=== PATIENT | male | born 1955 | race Caucasian/White ===

== ENCOUNTER 2022-09-08 08:34 | Inpatient (IN) | payer MEDICARE, MEDICAID, SELFPAY ==
--- NOTE | 2022-09-08 | EEG_ITS ---
This is a 16-channel EEG with an EKG lead. The patient is reported awake and restless during the tracing. Background EEG rhythm is 6 to 8 hertz 5 to 50 microvolt posteriorly and lower amplitude fast anteriorly. Occasional frontal delta form discharges were noted. Occasional right central sharply contoured theta range discharges were noted. No definite spike was noted. Cardiac lead did not reveal any significant abnormality. IMPRESSION: Mildly abnormal EEG suggestive of right frontocentral . M MD TORO Armstrong/FARRUKH / [id number]
--- NOTE | ~2022-09-08 | CT_ITS ---
EXAMINATION: CT HEAD WITHOUT CONTRAST CLINICAL INFORMATION: Acute mental status change COMPARISON: None TECHNIQUE: Contiguous axial imaging was performed from the skull base to vertex without intravenous administration of contrast. This CT examination was performed using dose optimization techniques as appropriate, variously including the following: *Automated exposure control *Adjustment of mA and/or kV according to patient size (this includes techniques or standardized protocols for targeted exams where dose is matched to indication/reason for exam; i.e. extremities or head) *Use of iterative reconstruction technique DLP: 1238 mGy-cm FINDINGS: There is prominence to the sulci and ventricles. There is volume loss in the region of the right temporal lobe and sylvian fissure. No evidence for intra or extra-axial fluid collection or hemorrhage, mass or mass effect. Tiny old thalamic lacunes incidentally are seen. There is mucoperiosteal thickening in the right maxillary sinus. The calvarium is intact. CT/CT head/brain wo IV con IMPRESSION: Chronic changes observed. No intracranial acute pathology.
--- NOTE | ~2022-09-08 | CT_ITS ---
EXAMINATION: CT ABDOMEN AND PELVIS WITHOUT CONTRAST CLINICAL INFORMATION: Stomach pain. COMPARISON: None TECHNIQUE: Multidetector volumetric imaging was performed from the superior aspect of the liver through the pubic symphysis. Sagittal and coronal reformatted images were obtained on the technologist's workstation. This CT examination was performed using dose optimization techniques as appropriate, variously including the following: *Automated exposure control *Adjustment of mA and/or kV according to patient size (this includes techniques or standardized protocols for targeted exams where dose is matched to indication/reason for exam; i.e. extremities or head) *Use of iterative reconstruction technique DLP: 766 mGy-cm FINDINGS: LUNG BASES: There is mild scar/subsegmental atelectasis at the lateral left base. There are coronary artery atherosclerotic calcifications. LIVER, GALLBLADDER, AND BILIARY TREE: The liver is normal in size, shape, and attenuation. No focal hepatic lesion or biliary ductal dilatation is present. There is cholelithiasis, without gallbladder wall thickening or obvious pericholecystic inflammatory change. PANCREAS: Unremarkable. SPLEEN: Unremarkable. ADRENAL GLANDS: Unremarkable. KIDNEYS AND URETERS: The kidneys are normal in size, shape, and attenuation. No hydronephrosis, hydroureter, or calculi seen. No perinephric stranding. BLADDER: Unremarkable. GASTROINTESTINAL TRACT: There is moderate diverticulosis, without acute diverticulitis. No bowel obstruction, free intraperitoneal air or abscess is seen. There is no focal bowel wall thickening. The vermiform appendix appears normal. ABDOMINAL WALL: There are small fat-containing umbilical and bilateral inguinal hernias. LYMPH NODES: Normal. VASCULAR: Unremarkable. PELVIC VISCERA: The prostate and seminal vesicles are unremarkable. OSSEOUS STRUCTURES: There is multi-level thoracolumbar degenerative disc disease, spondylosis and Schmorl's node formation. Particular note is made of a very large Schmorl's node of the L5 upper endplate. No acute or aggressive osseous abnormality is seen. CT/CT abdomen pelvis wo IV con IMPRESSION: 1. There is cholelithiasis, without cholecystitis or choledocholithiasis seen. 2. There is moderate diverticulosis, without acute diverticulitis. 3. No urinary mass, calculus or obstruction is seen. 4. There are small fat-containing umbilical and bilateral hernias. 5. There are degenerative changes of the thoracolumbar spine. No aggressive osseous lesion is seen. 6. There are coronary artery atherosclerotic calcifications. Fleischner guidelines were followed.
--- NOTE | 2022-09-08 08:39 | ECG_ITS ---
Test Reason : stroke Blood Pressure : / mmHG Vent. Rate : 076 BPM Atrial Rate : 000 BPM P-R Int : 000 ms QRS Dur : 094 ms QT Int : 428 ms P-R-T Axes : 000 035 240 degrees QTc Int : [address] depression inferior and shanice-lateral leads Prolonged QT Abnormal ECG No previous ECGs available Referred By: Deny Robb Electronically Signed By:BRODY MORALES
--- NOTE | 2022-09-08 08:48 | ED.GENADULT ---
HPI - General Adult General Chief complaint: Altered Mental Status Stated complaint: STROKE ALERT,LKWT 9PM,LETHARGY,ON COUMADIN PER EMS Time Seen by Provider: 09/08/22 08:39 Source: EMS Mode of arrival: EMS Limitations: no limitations History of Present Illness HPI narrative: A 66-year-old male with history of cardiac related issues on anticoagulation presents with altered mental status. His last seen normal at 9:00 a.m. last night. He has no known history of seizure. There is no evidence of trauma. Found altered and unresponsive in his bed this morning. Patient is unable to provide additional history. History is obtained by EMS. They report his blood pressure was slightly hypertensive his blood sugar was above 100, heart rate varied from 80-100 in atrial fibrillation but no acute ST elevations or depressions. Upon arrival, patient is alert but verbally unresponsive. He has blood around his mouth and unable to follow commands. Related Data Allergies Allergy/AdvReac Type Severity Reaction Status Date / Time Unable to Assess Allergy Verified 09/08/22 08:39 Review of Systems Review of Systems: Yes Unobtainable due to mental status [facility] Past Medical History Source: unable to obtain Social History Social History Alcohol intake: unknown Advance Directives: Yes Advance Directives on File: No Physical Exam ED Vital Signs: Vital Signs - 24 hr 09/08/22 08:56 09/08/22 11:09 09/08/22 13:32 Temperature 97.7 F 97.8 F Pulse Rate 84 60 76 Respiratory Rate 18 14 11 L Blood Pressure 179/76 H 104/47 L 113/49 L Pulse Oximetry 98 95 99 Oxygen Delivery Method Room Air Room Air Room Air BMI result Body Mass Index 30.4 GEN: Well developed, no acute distress, alert HEENT: Normocephalic, atraumatic, normal external ears, nose appears normal, blood around mouth, unable to examine oral cavity Eyes: Normal to appearance Neck: Supple, no lymphadenopathy Respiratory: Talks in complete sentences, no respiratory distress, clear to auscultation bilaterally Cardiovascular: Irregular cardiac rhythm, 2/6 systolic murmur, mechanical valve sounds Abdomen: Soft, nontender, nondistended, no guarding, no rebound Back: No CVA tenderness Extremities: No clubbing cyanosis or edema Neurologic: No focal neurologic deficits, unable to perform a complete neurologic exam due to patient's condition Skin: No rash Psych: Altered mental status Course Course Course Narrative: 66-year-old male with history of atrial fibrillation, mechanical valve on anticoagulation presents with altered mental status. Etiology is unclear. He was last seen normal at 9:00 a.m. last night. History was obtained from EMS. On my examination there were no obvious focal neurologic deficits. He had blood around the exterior aspect of his mouth unable to visualize the oral cavity. Broad differential diagnosis currently being considered. Patient had CT scan, EKG, laboratory analysis, urinalysis. I suspect patient will likely require hospitalization to his current condition. Reevaluation(s) Reevaluation #1: Patient had no response to Narcan. Will admit patient for altered mental status. Time: 13:39 Medications Administered Generic Name Dose Route Start Last Admin Trade Name Freq PRN Reason Stop Dose Admin Naloxone HCl 5 mg/ Dextrose 100 mls @ 10 mls/hr 09/08/22 11:45 09/08/22 12:51 IV 0.5 mg/hr .Q10H GEOVANNA 10 mls/hr Administration 0.5 MG/HR Discontinued Medications Generic Name Dose Route Start Last Admin Trade Name Freq PRN Reason Stop Dose Admin Sodium Chloride 1,000 mls @ 999 mls/hr 09/08/22 09:45 09/08/22 11:04 Ns IV 09/08/22 10:45 Infused .Q1H1M GEOVANNA Infusion Medical Decision Making Medical Decision Making [facility] Narrative: 66-year-old male with a history of atrial fibrillation on anticoagulation presents with altered mental status. There are no focal deficits but patient is unresponsive and unable to provide Differential Diagnosis Differential Diagnoses: The differential diagnosis associated with the presentation includes (Head injury, intracranial bleeding, UTI, intoxication, altered mental status, encephalopathy, doubt meningitis) Admission/Observation Consideration of admission/observation: Escalation of care including admission/observation considered Consult Healthcare Provider Management of the patient was discussed with: Hospitalist Lab Data [facility] Lab Attestation statement: I reviewed the patient's lab results. 09/08/22 08:50 09/08/22 08:50 Labs: Lab Results 09/08/22 09/08/22 09/08/22 Range/Units 08:42 08:44 08:50 WBC 9.2 (4.8-10.8) X10*3/uL RBC 5.09 (4.60-5.80) X10*6/uL Hgb 14.7 (14.0-18.0) g/dl Hct 44.0 (42.0-52.0) % MCV 86.4 (80.0-98.0) fL MCH 28.9 (27.0-33.0) pg MCHC 33.4 (31.0-36.0) g/dl RDW 13.0 (11.0-16.0) % Plt Count 159 L (160-400) X10*3/uL MPV 10.9 (9.4-12.4) fL Immature Gran % (Auto) 1.1 H (0.0-0.4) % Neut % (Auto) 79.3 H (45-73) % Lymph % (Auto) 12.9 L (20-40) % [place] % (Auto) 5.7 (2-11) % Eos % (Auto) 0.7 (0-4) % Baso % (Auto) 0.3 (0-2) % Lymph # (Auto) 1.2 (1.2-4.9) X10*3/uL [place] # (Auto) 0.5 (0.1-1.2) X10*3/uL Eos # (Auto) 0.1 (0.0-0.4) X10*3/uL Baso # (Auto) 0.0 (0.0-0.2) X10*3/uL Abs Immat Gran (auto) 0.10 H (0.00-0.03) X10*3/uL Absolute Neuts (auto) 7.3 (2.0-8.3) x10*3/uL Absolute Nucleated RBC 0.000 (0.0-0.012) X10*3/uL Nucleated RBC % (auto) 0.0 (0.0-0.2) /100WBC PT (10.0-13.1) SEC Whole Blood PT 34.4 H (11.1-13.5) sec INR (0.9-1.1) Whole Blood INR 2.9 H (0.9-1.1) Sodium (135-145) mmol/L Potassium (3.3-5.1) mmol/L Chloride (96-108) mmol/L Carbon Dioxide (22-29) mmol/L Anion Gap (12-20) BUN (9-16) mg/dL Creatinine (0.5-1.4) mg/dL Estim Creat Clear Calc Estimated GFR POC Glucose 164 H (60-115) mg/dL Random Glucose (60-115) mg/dL Lactic Acid (0.5-2.0) mmol/L Lactic Acid F/U @ 2Hr (0.5-2.0) mmol/L Calcium (8.4-10.2) mg/dL Total Bilirubin (0.0-1.0) mg/dL Direct Bilirubin (0.0-0.5) mg/dL AST (5-37) U/L ALT (0-40) U/L Alkaline Phosphatase (39-117) U/L Ammonia (13-55) umol/L Total Protein (6.5-8.0) g/dL Albumin (3.5-5.0) g/dL Urine Color Urine Appearance Urine pH (5.0-9.0) Ur Specific [place] (1.005-1.025) Urine Protein (Neg-Trace) mg/dL Urine Glucose (UA) (Negative) mg/dL Urine Ketones (Negative) mg/dL Urine Blood (Negative) Urine Nitrite (Negative) Ur Leukocyte Esterase (Negative) Urine RBC (0-2) /HPF Urine WBC (0-5) /HPF Ur Squamous Epith Cells (0-2) /HPF Urine Bacteria (None Seen) Hyaline Casts (0-2) /LPF Urine Opiates Screen (Not Detect) Urine Fentanyl Screen (Not Detect) Ur Barbiturates Screen (Not Detect) Ur Phencyclidine Scrn (Not Detect) Ur Amphetamines Screen (Not Detect) U Benzodiazepines Scrn (Not Detect) Urine Cocaine Screen (Not Detect) U Marijuana (THC) Screen (Not Detect) Ethyl Alcohol mg/dL COVID-19 ([facility]) (Negative) COVID-19 Clin Com 09/08/22 09/08/22 09/08/22 Range/Units 08:50 08:50 08:50 WBC (4.8-10.8) X10*3/uL RBC (4.60-5.80) X10*6/uL Hgb (14.0-18.0) g/dl Hct (42.0-52.0) % MCV (80.0-98.0) fL MCH (27.0-33.0) pg MCHC (31.0-36.0) g/dl RDW (11.0-16.0) % Plt Count (160-400) X10*3/uL MPV (9.4-12.4) fL Immature Gran % (Auto) (0.0-0.4) % Neut % (Auto) (45-73) % Lymph % (Auto) (20-40) % [place] % (Auto) (2-11) % Eos % (Auto) (0-4) % Baso % (Auto) (0-2) % Lymph # (Auto) (1.2-4.9) X10*3/uL [place] # (Auto) (0.1-1.2) X10*3/uL Eos # (Auto) (0.0-0.4) X10*3/uL Baso # (Auto) (0.0-0.2) X10*3/uL Abs Immat Gran (auto) (0.00-0.03) X10*3/uL Absolute Neuts (auto) (2.0-8.3) x10*3/uL Absolute Nucleated RBC (0.0-0.012) X10*3/uL Nucleated RBC % (auto) (0.0-0.2) /100WBC PT 33.5 H (10.0-13.1) SEC Whole Blood PT (11.1-13.5) sec INR 2.8 H (0.9-1.1) Whole Blood INR (0.9-1.1) Sodium 142 (135-145) mmol/L Potassium 4.3 (3.3-5.1) mmol/L Chloride 109 H (96-108) mmol/L Carbon Dioxide 20 L (22-29) mmol/L Anion Gap 17 (12-20) BUN 21 H (9-16) mg/dL Creatinine 0.96 (0.5-1.4) mg/dL Estim Creat Clear Calc 83.9 Estimated GFR > 60 POC Glucose (60-115) mg/dL Random Glucose 159 H (60-115) mg/dL Lactic Acid (0.5-2.0) mmol/L Lactic Acid F/U @ 2Hr (0.5-2.0) mmol/L Calcium 9.2 (8.4-10.2) mg/dL Total Bilirubin 0.7 (0.0-1.0) mg/dL Direct Bilirubin 0.2 (0.0-0.5) mg/dL AST 24 (5-37) U/L ALT 23 (0-40) U/L Alkaline Phosphatase 61 (39-117) U/L Ammonia 25 (13-55) umol/L Total Protein 6.7 (6.5-8.0) g/dL Albumin 4.0 (3.5-5.0) g/dL Urine Color Urine Appearance Urine pH (5.0-9.0) Ur Specific [place] (1.005-1.025) Urine Protein (Neg-Trace) mg/dL Urine Glucose (UA) (Negative) mg/dL Urine Ketones (Negative) mg/dL Urine Blood (Negative) Urine Nitrite (Negative) Ur Leukocyte Esterase (Negative) Urine RBC (0-2) /HPF Urine WBC (0-5) /HPF Ur Squamous Epith Cells (0-2) /HPF Urine Bacteria (None Seen) Hyaline Casts (0-2) /LPF Urine Opiates Screen (Not Detect) Urine Fentanyl Screen (Not Detect) Ur Barbiturates Screen (Not Detect) Ur Phencyclidine Scrn (Not Detect) Ur Amphetamines Screen (Not Detect) U Benzodiazepines Scrn (Not Detect) Urine Cocaine Screen (Not Detect) U Marijuana (THC) Screen (Not Detect) Ethyl Alcohol < 10 mg/dL COVID-19 ([facility]) (Negative) COVID-19 Clin Com 09/08/22 09/08/22 09/08/22 Range/Units 09:22 09:22 09:22 WBC (4.8-10.8) X10*3/uL RBC (4.60-5.80) X10*6/uL Hgb (14.0-18.0) g/dl Hct (42.0-52.0) % MCV (80.0-98.0) fL MCH (27.0-33.0) pg MCHC (31.0-36.0) g/dl RDW (11.0-16.0) % Plt Count (160-400) X10*3/uL MPV (9.4-12.4) fL Immature Gran % (Auto) (0.0-0.4) % Neut % (Auto) (45-73) % Lymph % (Auto) (20-40) % [place] % (Auto) (2-11) % Eos % (Auto) (0-4) % Baso % (Auto) (0-2) % Lymph # (Auto) (1.2-4.9) X10*3/uL [place] # (Auto) (0.1-1.2) X10*3/uL Eos # (Auto) (0.0-0.4) X10*3/uL Baso # (Auto) (0.0-0.2) X10*3/uL Abs Immat Gran (auto) (0.00-0.03) X10*3/uL Absolute Neuts (auto) (2.0-8.3) x10*3/uL Absolute Nucleated RBC (0.0-0.012) X10*3/uL Nucleated RBC % (auto) (0.0-0.2) /100WBC PT (10.0-13.1) SEC Whole Blood PT (11.1-13.5) sec INR (0.9-1.1) Whole Blood INR (0.9-1.1) Sodium (135-145) mmol/L Potassium (3.3-5.1) mmol/L Chloride (96-108) mmol/L Carbon Dioxide (22-29) mmol/L Anion Gap (12-20) BUN (9-16) mg/dL Creatinine (0.5-1.4) mg/dL Estim Creat Clear Calc Estimated GFR POC Glucose (60-115) mg/dL Random Glucose (60-115) mg/dL Lactic Acid 3.1 H* (0.5-2.0) mmol/L Lactic Acid F/U @ 2Hr (0.5-2.0) mmol/L Calcium (8.4-10.2) mg/dL Total Bilirubin (0.0-1.0) mg/dL Direct Bilirubin (0.0-0.5) mg/dL AST (5-37) U/L ALT (0-40) U/L Alkaline Phosphatase (39-117) U/L Ammonia (13-55) umol/L Total Protein (6.5-8.0) g/dL Albumin (3.5-5.0) g/dL Urine Color Yellow Urine Appearance Clear Urine pH 5.5 (5.0-9.0) Ur Specific [place] 1.015 (1.005-1.025) Urine Protein Negative (Neg-Trace) mg/dL Urine Glucose (UA) Negative (Negative) mg/dL Urine Ketones Negative (Negative) mg/dL Urine Blood Trace H (Negative) Urine Nitrite Negative (Negative) Ur Leukocyte Esterase Negative (Negative) Urine RBC 0-2 (0-2) /HPF Urine WBC 0-5 (0-5) /HPF Ur Squamous Epith Cells 0-2 (0-2) /HPF Urine Bacteria None Seen (None Seen) Hyaline Casts 0-2 (0-2) /LPF Urine Opiates Screen (Not Detect) Urine Fentanyl Screen (Not Detect) Ur Barbiturates Screen (Not Detect) Ur Phencyclidine Scrn (Not Detect) Ur Amphetamines Screen (Not Detect) U Benzodiazepines Scrn (Not Detect) Urine Cocaine Screen (Not Detect) U Marijuana (THC) Screen (Not Detect) Ethyl Alcohol mg/dL COVID-19 ([facility]BER) Negative (Negative) COVID-19 Clin Com See Note 09/08/22 09/08/22 09/08/22 Range/Units 09:22 11:38 13:18 WBC (4.8-10.8) X10*3/uL RBC (4.60-5.80) X10*6/uL Hgb (14.0-18.0) g/dl Hct (42.0-52.0) % MCV (80.0-98.0) fL MCH (27.0-33.0) pg MCHC (31.0-36.0) g/dl RDW (11.0-16.0) % Plt Count (160-400) X10*3/uL MPV (9.4-12.4) fL Immature Gran % (Auto) (0.0-0.4) % Neut % (Auto) (45-73) % Lymph % (Auto) (20-40) % [place] % (Auto) (2-11) % Eos % (Auto) (0-4) % Baso % (Auto) (0-2) % Lymph # (Auto) (1.2-4.9) X10*3/uL [place] # (Auto) (0.1-1.2) X10*3/uL Eos # (Auto) (0.0-0.4) X10*3/uL Baso # (Auto) (0.0-0.2) X10*3/uL Abs Immat Gran (auto) (0.00-0.03) X10*3/uL Absolute Neuts (auto) (2.0-8.3) x10*3/uL Absolute Nucleated RBC (0.0-0.012) X10*3/uL Nucleated RBC % (auto) (0.0-0.2) /100WBC PT (10.0-13.1) SEC Whole Blood PT (11.1-13.5) sec INR (0.9-1.1) Whole Blood INR (0.9-1.1) Sodium (135-145) mmol/L Potassium (3.3-5.1) mmol/L Chloride (96-108) mmol/L Carbon Dioxide (22-29) mmol/L Anion Gap (12-20) BUN (9-16) mg/dL Creatinine (0.5-1.4) mg/dL Estim Creat Clear Calc Estimated GFR POC Glucose (60-115) mg/dL Random Glucose (60-115) mg/dL Lactic Acid (0.5-2.0) mmol/L Lactic Acid F/U @ 2Hr 0.9 (0.5-2.0) mmol/L Calcium (8.4-10.2) mg/dL Total Bilirubin (0.0-1.0) mg/dL Direct Bilirubin (0.0-0.5) mg/dL AST (5-37) U/L ALT (0-40) U/L Alkaline Phosphatase (39-117) U/L Ammonia (13-55) umol/L Total Protein (6.5-8.0) g/dL Albumin (3.5-5.0) g/dL Urine Color Urine Appearance Urine pH (5.0-9.0) Ur Specific [place] (1.005-1.025) Urine Protein (Neg-Trace) mg/dL Urine Glucose (UA) (Negative) mg/dL Urine Ketones (Negative) mg/dL Urine Blood (Negative) Urine Nitrite (Negative) Ur Leukocyte Esterase (Negative) Urine RBC (0-2) /HPF Urine WBC (0-5) /HPF Ur Squamous Epith Cells (0-2) /HPF Urine Bacteria (None Seen) Hyaline Casts (0-2) /LPF Urine Opiates Screen Not Detected (Not Detect) Urine Fentanyl Screen POSITIVE H (Not Detect) Ur Barbiturates Screen Not Detected (Not Detect) Ur Phencyclidine Scrn Not Detected (Not Detect) Ur Amphetamines Screen Not Detected (Not Detect) U Benzodiazepines Scrn Not Detected (Not Detect) Urine Cocaine Screen Not Detected (Not Detect) U Marijuana (THC) Screen POSITIVE H (Not Detect) Ethyl Alcohol mg/dL COVID-19 ([facility]) Negative (Negative) COVID-19 Clin Com See Note 09/08/22 Range/Units 13:28 WBC (4.8-10.8) X10*3/uL RBC (4.60-5.80) X10*6/uL Hgb (14.0-18.0) g/dl Hct (42.0-52.0) % MCV (80.0-98.0) fL MCH (27.0-33.0) pg MCHC (31.0-36.0) g/dl RDW (11.0-16.0) % Plt Count (160-400) X10*3/uL MPV (9.4-12.4) fL Immature Gran % (Auto) (0.0-0.4) % Neut % (Auto) (45-73) % Lymph % (Auto) (20-40) % [place] % (Auto) (2-11) % Eos % (Auto) (0-4) % Baso % (Auto) (0-2) % Lymph # (Auto) (1.2-4.9) X10*3/uL [place] # (Auto) (0.1-1.2) X10*3/uL Eos # (Auto) (0.0-0.4) X10*3/uL Baso # (Auto) (0.0-0.2) X10*3/uL Abs Immat Gran (auto) (0.00-0.03) X10*3/uL Absolute Neuts (auto) (2.0-8.3) x10*3/uL Absolute Nucleated RBC (0.0-0.012) X10*3/uL Nucleated RBC % (auto) (0.0-0.2) /100WBC PT (10.0-13.1) SEC Whole Blood PT (11.1-13.5) sec INR (0.9-1.1) Whole Blood INR (0.9-1.1) Sodium (135-145) mmol/L Potassium (3.3-5.1) mmol/L Chloride (96-108) mmol/L Carbon Dioxide (22-29) mmol/L Anion Gap (12-20) BUN (9-16) mg/dL Creatinine (0.5-1.4) mg/dL Estim Creat Clear Calc Estimated GFR POC Glucose 115 (60-115) mg/dL Random Glucose (60-115) mg/dL Lactic Acid (0.5-2.0) mmol/L Lactic Acid F/U @ 2Hr (0.5-2.0) mmol/L Calcium (8.4-10.2) mg/dL Total Bilirubin (0.0-1.0) mg/dL Direct Bilirubin (0.0-0.5) mg/dL AST (5-37) U/L ALT (0-40) U/L Alkaline Phosphatase (39-117) U/L Ammonia (13-55) umol/L Total Protein (6.5-8.0) g/dL Albumin (3.5-5.0) g/dL Urine Color Urine Appearance Urine pH (5.0-9.0) Ur Specific [place] (1.005-1.025) Urine Protein (Neg-Trace) mg/dL Urine Glucose (UA) (Negative) mg/dL Urine Ketones (Negative) mg/dL Urine Blood (Negative) Urine Nitrite (Negative) Ur Leukocyte Esterase (Negative) Urine RBC (0-2) /HPF Urine WBC (0-5) /HPF Ur Squamous Epith Cells (0-2) /HPF Urine Bacteria (None Seen) Hyaline Casts (0-2) /LPF Urine Opiates Screen (Not Detect) Urine Fentanyl Screen (Not Detect) Ur Barbiturates Screen (Not Detect) Ur Phencyclidine Scrn (Not Detect) Ur Amphetamines Screen (Not Detect) U Benzodiazepines Scrn (Not Detect) Urine Cocaine Screen (Not Detect) U Marijuana (THC) Screen (Not Detect) Ethyl Alcohol mg/dL COVID-19 ([facility]) (Negative) COVID-19 Clin Com Independent Interpretation I performed an independent interpretation of an: EKG (Atrial fibrillation heart rate 76, evidence of LVH with strain pattern, slightly prolonged QT), Plain X-Ray and CT Scan (No acute intracranial process) Radiology Impression Discussion of test interpretation with radiology: I have reviewed the radiologist's reading. (IMPRESSION: Chronic changes observed. No intracranial acute pathology. Dictated By:Alvaro Luke MDSigned By:<Electronically signed by Alvaro Luke MD in [place]>09/08/22 1022 DD/ [id number]/TT: [employer]:) Independent Historian Clinical information obtained from an independent historian. History obtained from or confirmed by: EMS External Record Review No records available Tests considered The following testing was considered but not selected: MRI, EEG Discharge Plan Discharge Clinical Impression: Altered mental status Patient Disposition: Admitted As Inpatient
[2022-09-08 08:56] VITALS: BP 160/80; BP 179/76; PULSE 84; PULSE 85; RESP 18; TEMP 36.5; O2SAT 98; BMI 30.4
[2022-09-08 08:57] LABS: MANUAL DIFF FLAG NO
[2022-09-08 08:58] LABS: Basophils Percent Auto 0.3 % (0-2); Eosinophils Absolute Auto 0.1 X10*3/uL (0.0-0.4); Eosinophils Percent Auto 0.7 % (0-4); Hemoglobin 14.7 g/dl (14.0-18.0); Imm Gran Pct Auto 1.1 % (0.0-0.4); Lymphocytes Absolute Auto 1.2 X10*3/uL (1.2-4.9); Lymphocytes Percent Auto 12.9 % (20-40); Mean Corpuscular HGB Conc 33.4 g/dl (31.0-36.0); Mean Corpuscular Hemoglobin 28.9 pg (27.0-33.0); Mean Corpuscular Volume 86.4 fL (80.0-98.0); Mean Platelet Volume 10.9 fL (9.4-12.4); Monocytes Absolute Auto 0.5 X10*3/uL (0.1-1.2); Monocytes Percent Auto 5.7 % (2-11); Neutrophils Absolute Auto 7.3 x10*3/uL (2.0-8.3); Neutrophils Percent Auto 79.3 % (45-73); Platelet Count 159 X10*3/uL (160-400); Red Blood Count 5.09 X10*6/uL (4.60-5.80); White Blood Count 9.2 X10*3/uL (4.8-10.8)
[2022-09-08 08:59] LABS: Prothrombin Time Whole Bld POC 34.4 sec (11.1-13.5); ~PT, ~INR - Anti Coag Clinic 2.9 (0.9-1.1)
[2022-09-08 09:00] LABS: Glucose, Whole Blood 164 mg/dL (60-115)
[2022-09-08 09:03] LABS: INTERNATIONAL NORM RATIO 2.8 (0.9-1.1); Prothrombin Time 33.5 SEC (10.0-13.1)
[2022-09-08 09:08] LABS: Ammonia 25 umol/L (13-55)
[2022-09-08 09:19] LABS: Alanine Aminotransferase 23 U/L (0-40); Alkaline Phosphatase 61 U/L (39-117); Anion Gap 17 (12-20); Aspartate Amino Transferase 24 U/L (5-37); Bilirubin Direct 0.2 mg/dL (0.0-0.5); Bilirubin Total 0.7 mg/dL (0.0-1.0); Blood Urea Nitrogen 21 mg/dL (9-16); Calcium 9.2 mg/dL (8.4-10.2); Carbon Dioxide 20 mmol/L (22-29); Chloride 109 mmol/L (96-108); Creatinine Clr Calc Pharmacy 83.9; Estimated Glomerular Filt Rate > 60; Ethanol < 10 mg/dL; Glucose Random 159 mg/dL (60-115); Potassium 4.3 mmol/L (3.3-5.1); Sodium 142 mmol/L (135-145); Total Protein 6.7 g/dL (6.5-8.0)
[2022-09-08 09:33] LABS: Appearance Urine Clear; Color Urine Yellow; Glucose Urine UA Negative (Negative); Leukocyte Esterase Urine Negative (Negative); Nitrite Urine Negative (Negative); PH 5.5 (5.0-9.0); Specific Gravity - Urine 1.015 (1.005-1.025); UMIC TRIGGER UACC YES; Urine Blood Trace (Negative); Urine Ketones Negative (Negative); Urine Protein Negative (Neg-Trace)
[2022-09-08 09:38] LABS: Bacteria Urine None Seen (None Seen); Hyaline Casts Urine 0-2 /LPF (0-2); RBC Urine 0-2 /HPF (0-2); Squamous Epithelial Cell Urine 0-2 /HPF (0-2); WBC Urine 0-5 /HPF (0-5)
[2022-09-08 09:42] LABS: Amphetamine Screen Urine Not Detected (Not Detect); Barbiturates, Urine Not Detected (Not Detect); Benzodiazepines Screen Urine Not Detected (Not Detect); Cannabinoid Screen Urine POSITIVE (Not Detect); Cocaine Screen Urine Not Detected (Not Detect); Fentanyl, urine POSITIVE (Not Detect); Opiate Screen Urine Not Detected (Not Detect); Phencyclidine Screen Urine Not Detected (Not Detect)
[2022-09-08 09:45] LABS: Lactic Acid 3.1 mmol/L (0.5-2.0)
[2022-09-08] MEDS: 0.9 % Sodium Chloride 1,000 ML 999 ML IV (09:53)
[2022-09-08 09:54] LABS: COVID-19 Test Negative (Negative); IDNOW Serial# BCCEAD1C
--- NOTE | 2022-09-08 11:08 | PC.NURSE ---
Patient sleeping is aroused with tactile stimulation continues to be non parcipative in assessment or care not answering questions will CTM
[2022-09-08 11:09] VITALS: BP 104/47; PULSE 60; RESP 14; O2SAT 95
[2022-09-08 11:30] LABS: Reflex Lactate? Lactic Acid Added
[2022-09-08 12:01] LABS: ~Lactic Acid-LAB USE ONLY 0.9 mmol/L (0.5-2.0)
[2022-09-08] MEDS: Naloxone HCl 5 MG in Dextrose 5 % 95 ML 10 MG IV (12:51)
--- NOTE | 2022-09-08 13:29 | PM.IMHP ---
History of Present Illness Date of Service: 09/08/22 Attending physician on admission: Alvin Gonzalez Chief Complaint: Altered Mental Status Pt is a 66-year-old male with a PMH significant for?AFib on coumadin, mechanical valve, hx of AAA, alcohol use disorder sober for past 6 years, severe depression, HTN, and COPD who presents to the ED with?altered mental status. Pt unable to provide HPI, which is obtained from sister whom he lives with. Patient was found this morning difficult to arouse, not responding to questions or commands, and with blood in his mouth. EMS arrived and patient was able to respond yes to his name; one dose of Narcan administered to no noticeable effect. Patient was able to move all 4 extremities spontaneously, no focal deficit noted. Patient was last seen well at 21:00 last night, when he went to bed in his normal state of health. Pt initially seen and evaluated, still altered and only answers yes to his name; otherwise unresponsive to any other query. Will not make eye contact, laying on his side and staring straight ahead. Pt seen again and found incontinent of feces in the ED bed. Patient was uncooperative and combative with nurses when bed was being changed. Still unresponsive to inquiries but now verbalizing his desire to be left alone. Of note patient has severe depression on high doses of sertraline and olanzapine. Sister states he cannot function without current olanzapine dose. Upon last admission at [facility] they reduced his dose and patient began refusing to speak. Patient's sister also notes past abuse of his medications, notably Ativan and 2 suicide attempts by overdosing on Coumadin. Sister now has a lock box for patient's medications which she carefully monitors and administers twice a day. Patient has been compliant to medications since, to sister's best knowledge. Sister also notes pt has been receiving ECT every 3 weeks for the past year. In the ED labs were significant for no leukocytosis, glucose of 164, lactic acid 3.1 with repeat 0.9, ammonia WNL at 25. UA negative for UTI. Tox screen positive for fentanyl and marijuana. CT?of head showed no intracranial acute pathology. EKG demonstrated atrial fibrillation with QTc of 480 with no evidence of ST elevations or depressions. Pt was treated with IVF and naloxone. Pt will be admitted to the hospital further workup evaluation for AMS. Review of Systems Review of Systems: Unable to obtain due to patient's mentation [facility] Medical History (Updated 09/08/22 @ 16:01 by KALLIE Alamo) AAA (abdominal aortic aneurysm) Alcohol use disorder Social History Alcohol intake: unknown Advance Directives: Yes Advance Directives on File: No Meds Allergies Allergy/AdvReac Type Severity Reaction Status Date / Time Unable to Assess Allergy Verified 09/08/22 08:39 Active Medications: Current Medications Naloxone HCl 5 mg/ Dextrose 100 mls @ 10 mls/hr IV .Q10H GEOVANNA Last Admin: 09/08/22 12:51 Dose: 0.5 mg/hr, 10 mls/hr Pharmacy Consult (Consult Rx Perform Med Rec) 1 each MISCELLANE ONCE PRN PRN Reason: Consult order Physical Exam Vital Signs and Narrative: Vital Signs: Last Vital Signs Temp 97.7 F 09/08/22 08:56 Pulse 60 09/08/22 11:09 Resp 14 09/08/22 11:09 BP 104/47 L 09/08/22 11:09 Pulse Ox 95 09/08/22 11:09 O2 Del Method 09/08/22 11:09 BMI result Body Mass Index 30.4 Difficult to obtain due to patient being uncooperative General: Alert, in no acute distress. Patient only responding ?yes? to his name, otherwise not making eye contact or responding to any other query Head: Atraumatic, small amount of dried blood and minor laceration on lower lip from apparently bite Resp: CTA bilaterally CVS: Irregularly irregular rhythm, mechanical valve click noted GI: +BS, NT, no distention Skin: No rash Neuro: Cranial nerves II-XII grossly intact. Motor grossly intact. Moves all extremities spontaneously Extremities: No edema Results Labs 09/08/22 08:50 09/08/22 08:50 Labs: Laboratory Results - last 24 hr 09/08/22 09/08/22 09/08/22 08:42 08:44 08:50 MCV 86.4 MCH 28.9 MCHC 33.4 RDW 13.0 Plt Count 159 L MPV 10.9 Immature Gran % (Auto) 1.1 H Neut % (Auto) 79.3 H Lymph % (Auto) 12.9 L Hamilton % (Auto) 5.7 Eos % (Auto) 0.7 Baso % (Auto) 0.3 Lymph # (Auto) 1.2 Hamilton # (Auto) 0.5 Eos # (Auto) 0.1 Baso # (Auto) 0.0 Abs Immat Gran (auto) 0.10 H Absolute Neuts (auto) 7.3 Absolute Nucleated RBC 0.000 Nucleated RBC % (auto) 0.0 PT Whole Blood PT 34.4 H INR Whole Blood INR 2.9 H Anion Gap Estim Creat Clear Calc Estimated GFR POC Glucose 164 H Random Glucose Lactic Acid Lactic Acid F/U @ 2Hr Calcium Total Bilirubin Direct Bilirubin AST ALT Alkaline Phosphatase Ammonia Total Protein Albumin Urine Color Urine Appearance Urine pH Ur Specific [place] Urine Protein Urine Glucose (UA) Urine Ketones Urine Blood Urine Nitrite Ur Leukocyte Esterase Urine RBC Urine WBC Ur Squamous Epith Cells Urine Bacteria Hyaline Casts Urine Opiates Screen Urine Fentanyl Screen Ur Barbiturates Screen Ur Phencyclidine Scrn Ur Amphetamines Screen U Benzodiazepines Scrn Urine Cocaine Screen U Marijuana (THC) Screen Ethyl Alcohol COVID-19 (AMBER) COVID-19 [employer] 09/08/22 09/08/22 09/08/22 08:50 08:50 08:50 MCV MCH MCHC RDW Plt Count MPV Immature Gran % (Auto) Neut % (Auto) Lymph % (Auto) Hamilton % (Auto) Eos % (Auto) Baso % (Auto) Lymph # (Auto) Hamilton # (Auto) Eos # (Auto) Baso # (Auto) Abs Immat Gran (auto) Absolute Neuts (auto) Absolute Nucleated RBC Nucleated RBC % (auto) PT 33.5 H Whole Blood PT INR 2.8 H Whole Blood INR Anion Gap 17 Estim Creat Clear Calc 83.9 Estimated GFR > 60 POC Glucose Random Glucose 159 H Lactic Acid Lactic Acid F/U @ 2Hr Calcium 9.2 Total Bilirubin 0.7 Direct Bilirubin 0.2 AST 24 ALT 23 Alkaline Phosphatase 61 Ammonia 25 Total Protein 6.7 Albumin 4.0 Urine Color Urine Appearance Urine pH Ur Specific [place] Urine Protein Urine Glucose (UA) Urine Ketones Urine Blood Urine Nitrite Ur Leukocyte Esterase Urine RBC Urine WBC Ur Squamous Epith Cells Urine Bacteria Hyaline Casts Urine Opiates Screen Urine Fentanyl Screen Ur Barbiturates Screen Ur Phencyclidine Scrn Ur Amphetamines Screen U Benzodiazepines Scrn Urine Cocaine Screen U Marijuana (THC) Screen Ethyl Alcohol < 10 COVID-19 (AMBER) COVID-19 [employer] [facility] 09/08/22 09/08/22 09/08/22 09:22 09:22 09:22 MCV MCH MCHC RDW Plt Count MPV Immature Gran % (Auto) Neut % (Auto) Lymph % (Auto) Hamilton % (Auto) Eos % (Auto) Baso % (Auto) Lymph # (Auto) Hamilton # (Auto) Eos # (Auto) Baso # (Auto) Abs Immat Gran (auto) Absolute Neuts (auto) Absolute Nucleated RBC Nucleated RBC % (auto) PT Whole Blood PT INR Whole Blood INR Anion Gap Estim Creat Clear Calc Estimated GFR POC Glucose Random Glucose Lactic Acid 3.1 H* Lactic Acid F/U @ 2Hr Calcium Total Bilirubin Direct Bilirubin AST ALT Alkaline Phosphatase Ammonia Total Protein Albumin Urine Color Yellow Urine Appearance Clear Urine pH 5.5 Ur Specific [place] 1.015 Urine Protein Negative Urine Glucose (UA) Negative Urine Ketones Negative Urine Blood Trace H Urine Nitrite Negative Ur Leukocyte Esterase Negative Urine RBC 0-2 Urine WBC 0-5 Ur Squamous Epith Cells 0-2 Urine Bacteria None Seen Hyaline Casts 0-2 Urine Opiates Screen Urine Fentanyl Screen Ur Barbiturates Screen Ur Phencyclidine Scrn Ur Amphetamines Screen U Benzodiazepines Scrn Urine Cocaine Screen U Marijuana (THC) Screen Ethyl Alcohol COVID-19 (AMBER) Negative COVID-19 Clin Com See Note 09/08/22 09/08/22 09:22 11:38 MCV MCH MCHC RDW Plt Count MPV Immature Gran % (Auto) Neut % (Auto) Lymph % (Auto) Hamilton % (Auto) Eos % (Auto) Baso % (Auto) Lymph # (Auto) Hamilton # (Auto) Eos # (Auto) Baso # (Auto) Abs Immat Gran (auto) Absolute Neuts (auto) Absolute Nucleated RBC Nucleated RBC % (auto) PT Whole Blood PT INR Whole Blood INR Anion Gap Estim Creat Clear Calc Estimated GFR POC Glucose Random Glucose Lactic Acid Lactic Acid F/U @ 2Hr 0.9 Calcium Total Bilirubin Direct Bilirubin AST ALT Alkaline Phosphatase Ammonia Total Protein Albumin Urine Color Urine Appearance Urine pH Ur Specific [place] Urine Protein Urine Glucose (UA) Urine Ketones Urine Blood Urine Nitrite Ur Leukocyte Esterase Urine RBC Urine WBC Ur Squamous Epith Cells Urine Bacteria Hyaline Casts Urine Opiates Screen Not Detected Urine Fentanyl Screen POSITIVE H Ur Barbiturates Screen Not Detected Ur Phencyclidine Scrn Not Detected Ur Amphetamines Screen Not Detected U Benzodiazepines Scrn Not Detected Urine Cocaine Screen Not Detected U Marijuana (THC) Screen POSITIVE H Ethyl Alcohol COVID-19 (AMBER) COVID-19 Clin Com Imaging Radiologist's Impressions: Impressions Head CT 09/08/22 09:40 IMPRESSION: Chronic changes observed. No intracranial acute pathology. Assessment and Plan (1) Metabolic encephalopathy: Status: Acute Plan Pt is a 66-year-old male with a PMH significant for?AFib on coumadin, mechanical valve, hx of AAA, alcohol use disorder sober for past 6 years, severe depression, HTN, and COPD who presents to the ED with?altered mental status. Patient will be admitted to the hospital for treatment and further evaluation of acute metabolic encephalopathy. 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 Gonzalez DVT Prophylaxis: On Coumadin Pt will require a hospitalization of at least two nights for treatment and further evaluation of acute metabolic encephalopathy. Time Spent With Patient Time: Total time managing care of this patient today ____ minutes. Quality Stroke Does the patient have a stroke diagnosis?: No VTE Prior VTE?: No VTE Risk Level:: Medical - moderate - high VTE Device Contraindication: Treatment Not Indicated VTE Drug Contraindication: N/A - Med Ordered
[2022-09-08 13:32] VITALS: BP 113/49; PULSE 76; RESP 11; TEMP 36.6; O2SAT 99
[2022-09-08 13:32] LABS: Glucose, Whole Blood 115 mg/dL (60-115)
[2022-09-08 13:37] LABS: COVID-19 Test Negative (Negative); IDNOW Serial# 16C4AD1C
--- NOTE | 2022-09-08 14:17 | PC.NURSE ---
Patient would not stay on his back for xray.
[2022-09-08 15:59] VITALS: BP 147/69; PULSE 75; RESP 16; TEMP 36.6; O2SAT 95
--- NOTE | 2022-09-08 16:00 | MHC.EDTECH ---
this pct assumed care of pt at 1500 ,pt vitals sign ,kendall cid is aware of pt removing school lunch monitor leads .
--- NOTE | 2022-09-08 17:20 | PHA.MEDREC ---
Pharmacy Consult ? Medication Reconciliation Pharmacy has completed the medication reconciliation. Patients sister gave list to emt. She states over the phone that this is accurate list at this time for her brother.
--- NOTE | 2022-09-08 17:32 | MHC.EDTECH ---
pt was incontinent of urine ,care given ,pt was very combative and uncooperative during care ,bedding change warm blanket given.
[2022-09-08] MEDS: OLANZapine 10 MG TABLET PO (18:41)
[2022-09-08] MEDS: lisinopriL 20 MG TABLET PO (18:41)
[2022-09-08] MEDS: Sertraline HCL 50 MG TABLET PO (18:42)
[2022-09-08] MEDS: LORazepam 1 MG TABLET PO (18:42)
[2022-09-08] MEDS: Aspirin Enteric Coated 81 MG TABLET.DR PO (18:42)
--- NOTE | 2022-09-08 19:30 | MHC.EDTECH ---
this pct attempted to feed patient ,pt refused to eat ,pt very combative refusing to keep checker bakery products on ,rn aware .
[2022-09-08 20:00] VITALS: BP 124/70; PULSE 72; RESP 16; TEMP 36.6; O2SAT 98
[2022-09-08] MEDS: Warfarin Sodium 4 MG TABLET PO (20:01)
--- NOTE | 2022-09-08 20:03 | PC.NURSE ---
Assumed care of pt. at 1900. Pt. pulled out his 2nd IV. meat soaker replaced in the left wrist. Delayed admin of coumadin d/t unavailability in [facility]. Pharmacy delivered and it was administered immediately. Pt. is alert to name only. Pt. currently lying in bed, under no apparent distress. Report called to [facility], however, they were unable to take report at this time.
[2022-09-08 20:54] VITALS: BP 122/68; PULSE 72; RESP 14; TEMP 36.9; O2SAT 96
[2022-09-08] MEDS: traZODone HCL 100 MG TABLET PO (22:28)
[2022-09-08] MEDS: Melatonin 3 MG TABLET 9 MG PO (22:29)
[2022-09-08] MEDS: Mirtazapine 30 MG TABLET PO (22:29)
[2022-09-08] MEDS: Atorvastatin Calcium 40 MG TABLET PO (22:29)
[2022-09-08] MEDS: 0.9 % Sodium Chloride Flush 3 ML SYRINGE IVFLUSH (22:39)
--- NOTE | 2022-09-08 22:44 | PC.NURSE ---
Addendum entered by Ruby Nieves RN 09/08/22 23:03: 2249: Pt is now rocking the bed, agitated, combative and swinging at staff. notified and ordered stat IM haldol X1. med given 2256. Original Note: Pt is alert to self only very impulsive. Keeps jumping OOB and very restless. He keeps removing his clothing and keeps taking the tele leads off despite constant redirection. He doesn't follow commands. He is on video currently. I just gave him his scheduled po meds that included trazadone and remeron. awaiting to see effect. notified.
--- NOTE | 2022-09-08 22:50 | PM.EVENT ---
Event Note Date of Service: 09/08/22 Event Note: received mssg from nurse that Pt is alert to self only very impulsive. Keeps jumping OOB and very restless. He keeps removing his clothing and keeps taking the tele leads off despite constant redirection. He doesn't follow commands,Pt is now rocking the bed, agitated, combative and swinging at staff. given 5 of IM haldol Time Spent With Patient Time: Total time managing care of this patient today ____ minutes.
[2022-09-08] MEDS: Haloperidol Lactate 5 MG/ML VIAL IM (22:57)
--- NOTE | 2022-09-09 01:07 | PC.NURSE ---
Addendum entered by Ruby Nieves RN 09/09/22 06:13: had ordered IM zyprexa and IM haldol. Med given at 0150. Original Note: Pt becoming increasingly combative/unredirectable. Pulled out his 4th IV. Pt will not keep his telemetry on. He keeps taking it off. Security called. Nursing molding room supervisor notified and RN asked about a 1:1 sitter for PT. notified. Awaiting call back.
[2022-09-09] MEDS: OLANZapine 10 MG VIAL 5 MG IM (01:50)
[2022-09-09] MEDS: LORazepam 2 MG/ML VIAL 1 MG IM (01:50)
[2022-09-09 06:38] VITALS: BP 120/83; PULSE 63; RESP 20; TEMP 37.1
[2022-09-09 07:36] LABS: INTERNATIONAL NORM RATIO 3.4 (0.9-1.1); Prothrombin Time 40.8 SEC (10.0-13.1)
[2022-09-09 08:00] VITALS: BP 134/71; PULSE 63; RESP 18; TEMP 36.8; O2SAT 97
[2022-09-09] MEDS: Multivitamin TABLET 1 TAB PO (08:48)
[2022-09-09] MEDS: amLODIPine Besylate 10 MG TABLET PO (08:48)
[2022-09-09] MEDS: Aspirin Enteric Coated 81 MG TABLET.DR PO (08:48)
[2022-09-09] MEDS: Sertraline HCL 100 MG TABLET 200 MG PO (08:48)
[2022-09-09] MEDS: lisinopriL 20 MG TABLET PO (08:48)
[2022-09-09] MEDS: Sertraline HCL 50 MG TABLET PO (08:48)
--- NOTE | 2022-09-09 09:14 | P.CNNE_ITS ---
History of Present Illness Data of Consult Service Date: 09/09/22 Primary Care Provider: Mojgan Duran HPI Reason for consult: Altered mental status 66-year-old male with a PMH significant for?AFib on coumadin, mechanical valve, hx of AAA, alcohol use disorder sober for past 6 years, severe depression, HTN, and COPD who presents to the ED with?altered mental status. Pt unable to provide HPI, which is obtained from sister whom he lives with.? Patient was found this morning difficult to arouse, not responding to questions or commands, and with blood in his mouth. EMS arrived and patient was able to respond yes to his name; one dose of Narcan administered to no noticeable effect. I asked him this morning if he knew what happened, he said he did not know. He was confused and was trying to come out of bed. Review of Systems Review of Systems: Could not be done with [facility] Past Medical History Medical History (Updated 09/09/22 @ 09:16 by Jessica Joyner MD) AAA (abdominal aortic aneurysm) Alcohol use disorder Social History Social History Household Members: Unknown / Unable to assess Housing: Unknown / Unable to assess Unable to assess alcohol history related to: Unknown Alcohol intake: unknown Patient Tobacco Use Status: Tobacco use Unknown Use of substances other than those prescribed or required for medical reasons: Unable to respond Advance Directives: No (pt confused.) Advance Directives Information Provided: Yes (pt confused.) Advance Directives on File: No Recently lost weight without trying: Unsure How much weight loss: Unsure Meds Allergies Allergy/AdvReac Type Severity Reaction Status Date / Time Unable to Assess Allergy Verified 09/08/22 08:39 Active Medications: Current Medications Acetaminophen (Acetaminophen 325 Mg Tablet) 650 mg PO Q6H PRN PRN Reason: Pain, Mild (Pain Scale 1-3) Amlodipine Besylate (Amlodipine Besylate 10 Mg Tablet) 10 mg PO DAILY [facility]; Protocol Last Admin: 09/09/22 08:48 Dose: 10 mg Aspirin (Aspirin Enteric Coated 81 Mg Tablet.) 81 mg PO DAILY [facility] Last Admin: 09/09/22 08:48 Dose: 81 mg Atorvastatin Calcium (Atorvastatin Calcium 40 Mg Tablet) 40 mg PO BEDTIME [facility] Last Admin: 09/08/22 22:29 Dose: 40 mg Lisinopril (Lisinopril 20 Mg Tablet) 20 mg PO DAILY [facility]; Protocol Last Admin: 09/09/22 08:48 Dose: 20 mg Lorazepam (Lorazepam 1 Mg Tablet) 1 mg PO BEDTIME [facility] Last Admin: 09/08/22 18:42 Dose: 1 mg Melatonin (Melatonin 3 Mg Tablet) 9 mg PO BEDTIME [facility] Last Admin: 09/08/22 22:29 Dose: 9 mg Mirtazapine (Mirtazapine 30 Mg Tablet) 30 mg PO BEDTIME [facility] Last Admin: 09/08/22 22:29 Dose: 30 mg Multivitamins/Vitamin C (Multivitamin Tablet) 1 tab PO DAILY [facility] Last Admin: 09/09/22 08:48 Dose: 1 tab Olanzapine (Olanzapine 10 Mg Tablet) 10 mg PO BEDTIME [facility] Last Admin: 09/08/22 18:41 Dose: 10 mg Pharmacy Consult (Consult Rx Perform Med Rec) 1 each MISCELLANE ONCE PRN PRN Reason: Consult order Sertraline HCl (Sertraline Hcl 50 Mg Tablet) 50 mg PO DAILY [facility] Last Admin: 09/09/22 08:48 Dose: 50 mg Sertraline HCl (Sertraline Hcl 100 Mg Tablet) 200 mg PO DAILY [facility] Last Admin: 09/09/22 08:48 Dose: 200 mg Sodium Chloride (0.9 % Sodium Chloride Flush 3 Ml Syringe) [facility] Last Admin: 09/09/22 07:32 Dose: Not Given Trazodone HCl (Trazodone Hcl 100 Mg Tablet) 100 mg PO BEDTIME [facility] Last Admin: 09/08/22 22:28 Dose: 100 mg Warfarin Sodium (Warfarin Sodium 2 Mg Tablet) 2 mg PO Cali@1800 [facility] Warfarin Sodium (Warfarin Sodium 4 Mg Tablet) 4 mg PO MoTuWeThFrSa@1800 [facility] Last Admin: 09/08/22 20:01 Dose: 4 mg Home Medications Medication Instructions Recorded Confirmed Last Taken Type amlodipine 10 mg tablet 10 mg PO DAILY 09/08/22 09/08/22 Unknown History aspirin 81 mg tablet,delayed 81 mg PO DAILY 09/08/22 09/08/22 Unknown History release atorvastatin 40 mg tablet 40 mg PO BEDTIME 09/08/22 09/08/22 Unknown History lisinopril 20 mg tablet 20 mg PO DAILY 09/08/22 09/08/22 Unknown History lorazepam 1 mg tablet 1 mg PO BEDTIME 09/08/22 09/08/22 Unknown History melatonin 10 mg tablet 10 mg PO BEDTIME 09/08/22 09/08/22 Unknown History mirtazapine 30 mg tablet 30 mg PO BEDTIME 09/08/22 09/08/22 Unknown History multivitamin 1 tab PO DAILY 09/08/22 09/08/22 Unknown History olanzapine 10 mg tablet 10 mg PO BEDTIME 09/08/22 09/08/22 Unknown History sertraline 100 mg tablet 200 mg PO DAILY 09/08/22 09/08/22 Unknown History sertraline 50 mg tablet 50 mg PO DAILY 09/08/22 09/08/22 Unknown History trazodone 50 mg tablet 100 mg PO BEDTIME 09/08/22 09/08/22 Unknown History warfarin 1 mg tablet 2 mg PO CALI 09/08/22 09/08/22 Unknown History warfarin 4 mg tablet 4 mg PO [id number] 09/08/22 09/08/22 Unknown History Physical Exam Vital Signs: Vital Signs: Last Vital Signs Temp 98.2 F 09/09/22 08:00 Pulse 63 09/09/22 08:00 Resp 18 09/09/22 08:00 BP 134/71 09/09/22 08:00 Pulse Ox 97 09/09/22 08:00 O2 Del Method 09/09/22 08:00 BMI result Body Mass Index 30.4 Neuro: Other: Alert and awake with somewhat confusion trying to get out of bed. Spontaneity and fluency of speech are somewhat diminished. Comprehension is intact. Hearing is impaired. Face is symmetrical. Visual knutson are full. There is no obvious focal arm or leg weakness. Deep tendon reflexes are absent. Results Labs 09/08/22 08:50 09/08/22 08:50 Labs: BMP 09/08/22 08:50 Sodium 142 Potassium 4.3 Chloride 109 H Carbon Dioxide 20 L BUN 21 H Creatinine 0.96 Calcium 9.2 Liver Function 09/08/22 Range/Units 08:50 Total Bilirubin 0.7 (0.0-1.0) mg/dL Direct Bilirubin 0.2 (0.0-0.5) mg/dL AST 24 (5-37) U/L ALT 23 (0-40) U/L Alkaline Phosphatase 61 (39-117) U/L Albumin 4.0 (3.5-5.0) g/dL Urine 09/08/22 Range/Units 09:22 Urine Color Yellow Urine Appearance Clear Urine pH 5.5 (5.0-9.0) Ur Specific [place] 1.015 (1.005-1.025) Urine Protein Negative (Neg-Trace) mg/dL Urine Glucose (UA) Negative (Negative) mg/dL Noncontrast head CT revealed a chronic right frontal embolic looking ischemic infarction cerebral atrophy was also noted. Microbiology Microbiology Results: Microbiology 09/08/22 08:50 Blood - Venous Blood Culture - Preliminary Prelim: GPC Gram Stain only Assessment and Plan (1) Seizure: Status: Acute 66 year old man with multiple risk factors for epilepsy including chronic i schemic infarction and alcohol abuse was brought to hospital after he was noted to be confused upon waking up with blood in his mouth. He likely had a convulsion or seizure. My recommendation is to start him on levetiracetam 500 mg twice a day. Time Spent With Patient Time: Total time managing care of this patient today ____ minutes. Procedures Date of Service Date of Service: 09/09/22
--- NOTE | 2022-09-09 10:45 | P.PNIM_ITS ---
Subjective Subjective Date of Service: 09/09/22 Interval History: f/u on confusion that souds likel seizure interval history: he is calm, and cooperative Physical Exam Vital Signs: Vital Signs: Last Vital Signs Temp 98.2 F 09/09/22 08:00 Pulse 63 09/09/22 08:00 Resp 18 09/09/22 08:00 BP 134/71 09/09/22 08:00 Pulse Ox 97 09/09/22 08:00 O2 Del Method 09/09/22 08:00 BMI result Body Mass Index 30.4 Const: Other: General: AO X 2, no acute distress Resp: CTA bilateral CVS: S1,S2,RRR GI: +BS, NT, no distention Skin: No rash Neuro: motor grossly intact Psych: appropriate affect Objective Data Active Medications Acetaminophen (Acetaminophen 325 Mg Tablet) 650 mg PO Q6H PRN PRN Reason: Pain, Mild (Pain Scale 1-3) Amlodipine Besylate (Amlodipine Besylate 10 Mg Tablet) 10 mg PO DAILY [facility]; Protocol Last Admin: 09/09/22 08:48 Dose: 10 mg Documented By: SAUD Aspirin (Aspirin Enteric Coated 81 Mg Tablet.) 81 mg PO DAILY [facility] Last Admin: 09/09/22 08:48 Dose: 81 mg Documented By: SAUD Atorvastatin Calcium (Atorvastatin Calcium 40 Mg Tablet) 40 mg PO BEDTIME [facility] Last Admin: 09/08/22 22:29 Dose: 40 mg Documented By: HÉCTOR Levetiracetam (Levetiracetam 500 Mg Tablet) 500 mg PO BID [facility] Lisinopril (Lisinopril 20 Mg Tablet) 20 mg PO DAILY [facility]; Protocol Last Admin: 09/09/22 08:48 Dose: 20 mg Documented By: SAUD Lorazepam (Lorazepam 1 Mg Tablet) 1 mg PO BEDTIME [facility] Last Admin: 09/08/22 18:42 Dose: 1 mg Documented By: CECILY Melatonin (Melatonin 3 Mg Tablet) 9 mg PO BEDTIME [facility] Last Admin: 09/08/22 22:29 Dose: 9 mg Documented By: HÉCTOR Mirtazapine (Mirtazapine 30 Mg Tablet) 30 mg PO BEDTIME [facility] Last Admin: 09/08/22 22:29 Dose: 30 mg Documented By: HÉCTOR Multivitamins/Vitamin C (Multivitamin Tablet) 1 tab PO DAILY [facility] Last Admin: 09/09/22 08:48 Dose: 1 tab Documented By: SAUD Olanzapine (Olanzapine 10 Mg Tablet) 10 mg PO BEDTIME [facility] Last Admin: 09/08/22 18:41 Dose: 10 mg Documented By: CECILY Pharmacy Consult (Consult Rx Perform Med Rec) 1 each MISCELLANE ONCE PRN PRN Reason: Consult order Sertraline HCl (Sertraline Hcl 50 Mg Tablet) 50 mg PO DAILY [facility] Last Admin: 09/09/22 08:48 Dose: 50 mg Documented By: SAUD Sertraline HCl (Sertraline Hcl 100 Mg Tablet) 200 mg PO DAILY [facility] Last Admin: 09/09/22 08:48 Dose: 200 mg Documented By: SAUD Sodium Chloride (0.9 % Sodium Chloride Flush 3 Ml Syringe) 3 ml IVFLUSH QSHIFT [facility] Last Admin: 09/09/22 07:32 Dose: Not Given Documented By: SAUD Non-Admin Reason: See Note Trazodone HCl (Trazodone Hcl 100 Mg Tablet) 100 mg PO BEDTIME [facility] Last Admin: 09/08/22 22:28 Dose: 100 mg Documented By: HÉCTOR Warfarin Sodium (Warfarin Sodium 2 Mg Tablet) 2 mg PO Shoemaker@1800 GEOVANNA Warfarin Sodium (Warfarin Sodium 4 Mg Tablet) 4 mg PO MoTuWeThFrSa@1800 [facility] Last Admin: 09/08/22 20:01 Dose: 4 mg Documented By: KURTERT Labs 09/08/22 08:50 09/08/22 08:50 Labs: Laboratory Results - last 24 hr 09/08/22 09/08/22 09/08/22 11:38 13:18 13:28 PT INR POC Glucose 115 Lactic Acid F/U @ 2Hr 0.9 COVID-19 ([facility]) Negative COVID-19 Clin Com See Note 09/09/22 07:11 PT 40.8 H INR 3.4 H POC Glucose Lactic Acid F/U @ 2Hr COVID-19 ([facility]BER) COVID-19 Clin Com Microbiology Microbiology Results: Microbiology 09/08/22 08:50 Blood Culture - Preliminary Blood - Venous Prelim: GPC Gram Stain only Assessment and Plan (1) Seizure: Status: Acute (2) Metabolic encephalopathy: Status: Acute (3) COPD (chronic obstructive pulmonary disease): Status: Acute (4) HTN (hypertension): Status: Acute Plan 66-year-old male with a PMH significant for?AFib on coumadin, mechanical valve, hx of AAA, alcohol use disorder sober for past 6 years, severe depression, HTN, and COPD who presents to the ED with?altered mental status.? Patient will be admitted to the hospital for treatment and further evaluation of acute metabolic encephalopathy. Acute metabolic encephalopathy Etiology unclear, seizure vs intoxication Tox screen came back positive for fentanyl and marijuana Patient with blood on lower lip from apparent bite Pt receives ECT every third week for past year for depression Patient received naloxone by EMS and in ED EEG being done today Neurology consult recommends keppra 500 bid Acute lactic acidosis, resolved Lactic acid 3.1 at time of presentation, repeat 0.9 COPD Does not appear to be in acute exacerbation at this time Continue home inhalers HTN Continue home meds Full Code DVT Prophylaxis:? On Coumadin admission to last at least 2 midnights for management of confusion, probably seizure Time Spent With Patient Time: Total time managing care of this patient today ____ minutes. Quality Stroke Does the patient have a stroke diagnosis?: No VTE Prior VTE?: No VTE Risk Level:: Medical - moderate - high VTE Device Contraindication: Treatment Not Indicated VTE Drug Contraindication: N/A - Med Ordered
[2022-09-09] MEDS: levETIRAcetam 500 MG TABLET PO ×2 (11:13→20:44)
[2022-09-09 11:57] VITALS: BP 158/62; PULSE 61; RESP 18; TEMP 37; O2SAT 99
--- NOTE | 2022-09-09 13:12 | MHC.CDI.CONC ---
CDI Concurrent Query Documentation Clarification: PHYSICIAN'S DOCUMENTATION REQUEST Date of Query: 09/09/22 1316 Patient Name: Beni Mckeon Admit Date: 09/08/22 Dear Doctor, A review of the medical record indicates additional documentation may be needed. Please review below and update the documentation accordingly. Clinical Indicators: Risk Factors/Clinical Indicators/Treatments PMH: Atrial fibrillation on Coumadin. EKG demonstrated Afib w QTc of 480. If possible, please provide further specificity regarding atrial fibrillation, such as: Paroxysmal atrial fibrillation: terminates spontaneously or with intervention within 7 days of onset. Persistent atrial fibrillation: episodes of continuous AF that last more than 7 days and do not self-terminate. Long lasting persistent atrial fibrillation: episodes of continuous AF that last more than 12 months, Chronic or Permanent atrial fibrillation: when a decision has been made to accept the presence of AF and there is no further attempt to restore or maintain sinus rhythm. Other (please specify) Unable to determine Use of terms such as suspected, likely, concern for, or probable (associated with a specific diagnosis that is being evaluated, monitored, or treated as if it exists) are acceptable and can be coded in the inpatient setting, when documented at the time of discharge. Thank you, Clarice Chapman [facility], CDIS Extension: [phone] Please use your independent medical judgment in providing your response. THIS QUERY IS PART OF THE PERMANENT MEDICAL RECORD
--- NOTE | 2022-09-09 14:37 | MHC.CM.PN ---
pt lives with sister is covid vax x3 has no previous servceis dc plan home with sister has own transportaion home
[2022-09-09 15:23] VITALS: BP 100/68; PULSE 65; RESP 18; TEMP 36.7; O2SAT 98
[2022-09-09 18:52] LABS: Prolactin 17.3 ng/mL (2.0-18.0)
[2022-09-09 19:20] VITALS: BP 109/66; PULSE 67; RESP 18; TEMP 36.4; O2SAT 98
[2022-09-09] MEDS: Melatonin 3 MG TABLET 9 MG PO (20:44)
[2022-09-09] MEDS: Mirtazapine 30 MG TABLET PO (20:45)
[2022-09-09] MEDS: traZODone HCL 100 MG TABLET PO (20:45)
[2022-09-09] MEDS: LORazepam 1 MG TABLET PO (20:45)
[2022-09-09] MEDS: Atorvastatin Calcium 40 MG TABLET PO (20:45)
[2022-09-09] MEDS: OLANZapine 10 MG TABLET PO (20:45)
[2022-09-10] VITALS: BP 157/81; PULSE 95; RESP 20; TEMP 36.3; O2SAT 93
[2022-09-10] MEDS: 0.9 % Sodium Chloride Flush 3 ML SYRINGE IVFLUSH ×3 (00:29→17:32)
[2022-09-10 08:00] VITALS: BP 119/65; PULSE 57; RESP 30; TEMP 36.3; O2SAT 99
[2022-09-10 08:01] LABS: INTERNATIONAL NORM RATIO 3.2 (0.9-1.1); Prothrombin Time 38.3 SEC (10.0-13.1)
--- NOTE | 2022-09-10 09:30 | PM.DS ---
DS: Providers Provider Date of Service: 09/10/22 Date of admission: 09/08/22 15:45 Primary care physician: Mojgan Duran Consults: 09/08/22 15:50 Consult to Neurology Routine Consulting Provider: [facility] Reason for consultation: AMS, ?seizure DS: Diagnosis Discharge Diagnosis (1) Seizure: Status: Resolved DS: Summary Hospital Course Hospital Course: Chief Complaint: Altered Mental Status Pt is a 66-year-old male with a PMH significant for?AFib on coumadin, mechanical valve, hx of AAA, alcohol use disorder sober for past 6 years, severe depression, HTN, and COPD who presents to the ED with?altered mental status. Pt unable to provide HPI, which is obtained from sister whom he lives with.? Patient was found this morning difficult to arouse, not responding to questions or commands, and with blood in his mouth. EMS arrived and patient was able to respond yes to his name; one dose of Narcan administered to no noticeable effect.? Patient was able to move all 4 extremities spontaneously, no focal deficit noted. Patient was last seen well at 21:00 last night, when he went to bed in his normal state of health. Pt initially seen and evaluated, still altered and only answers yes to his name; otherwise unresponsive to any other query. Will not make eye contact, laying on his side and staring straight ahead. Pt seen again and found incontinent of feces in the ED bed.? Patient was uncooperative and combative with nurses when bed was being changed. Still unresponsive to inquiries but now verbalizing his desire to be left alone. Of note patient has severe depression on high doses of sertraline and olanzapine. Sister states he cannot function without current olanzapine dose. Upon last admission at [facility] they reduced his dose and patient began refusing to speak.? Patient's sister also notes past abuse of his medications, notably Ativan and 2 suicide attempts by overdosing on Coumadin. Sister now has a lock box for patient's medications which she carefully monitors and administers twice a day.? Patient has been compliant to medications since, to sister's best knowledge.? Sister also notes pt has been receiving ECT every 3 weeks for the past year. In the ED labs were significant for no leukocytosis, glucose of 164, lactic acid 3.1 with repeat 0.9, ammonia WNL at 25.? UA negative for UTI.? Tox screen positive for fentanyl and marijuana. CT?of head showed no intracranial acute pathology. EKG demonstrated atrial fibrillation with QTc of 480 with no evidence of ST elevations or depressions. Pt was treated with IVF and naloxone. Pt will be admitted to the hospital further workup evaluation for AMS. Hospital course: Acute metabolic encephalopathy CT no acute finding, tox screen positive for marijuana and fentany, a bite on lip suggests seizure. Seen by neurology who recommend keppra 500 mg twice daily. He seems to be back at his baseline and is stable for discharge home with recommendation to avoid driving for the next 6 months at least, follow-up with Neurology, avoid swimming/taking baths alone. This was verbalized to the patient. Acute lactic acidosis, resolved. Lactic acid 3.1 at time of presentation, repeat 0.9. Likely elevated in the setting of seizure 1/2 blood cultures growing coagulase negative Staph, likely contaminant. No further treatment indicated COPD--No exacerbation Permanent AFiB --continue Coumadin Time Spent with Patient Time attestation: Total time managing care of this patient today ____ minutes. Discharge coordination time: Greater than 30 minutes Quality: Safe Use of Opioids Does Pt have an Active Cancer Diagnosis on the Problem List?: No Quality: Stroke Does the patient have a stroke diagnosis?: No Physical Exam Vital Signs: Vital Signs: Last Vital Signs Temp 97.3 F 09/10/22 08:00 Pulse 57 09/10/22 08:00 Resp 30 H 09/10/22 08:00 BP 119/65 09/10/22 08:00 Pulse Ox 99 09/10/22 08:00 O2 Del Method 09/10/22 08:00 BMI result Body Mass Index 30.4 General: AO X 3, no acute distress Resp: CTA bilateral CVS: S1,S2,RRR GI: +BS, NT, no distention Skin: No rash Neuro: motor grossly intact Psych: appropriate affect DS: Data Data Completed and Pending Labs on day of discharge: Laboratory Results - last 24 hr 09/08/22 09/10/22 08:50 07:19 PT 38.3 H INR 3.2 H Prolactin 17.3 Preliminary micro results at discharge 09/08/22 09:21 Blood Culture - Preliminary Blood - Venous No growth after 24 hours. Discharge Plan Discharge Anticipated Discharge Date/Time: 09/10/22 09:32 Patient Disposition: Home, Self-Care Discharge Diagnosis: Seizure Referrals: Mojgan Duran [Other] - 1 Week Jessica Joyner MD [Physician] - 1 Month Discharge Medications: New levetiracetam 500 mg Tablet 500 mg PO BID Qty: 60 0RF Continued atorvastatin 40 mg tablet 40 mg PO BEDTIME trazodone 50 mg tablet 100 mg PO BEDTIME lisinopril 20 mg tablet 20 mg PO DAILY sertraline 100 mg tablet 200 mg PO DAILY olanzapine 10 mg tablet 10 mg PO BEDTIME aspirin 81 mg Tablet,Delayed Release (Dr/Ec) 81 mg PO DAILY warfarin 4 mg tablet 4 mg PO MOTUWETHFRSA amlodipine 10 mg tablet 10 mg PO DAILY mirtazapine 30 mg tablet 30 mg PO BEDTIME lorazepam 1 mg tablet 1 mg PO BEDTIME warfarin 1 mg tablet 2 mg PO CALI sertraline 50 mg tablet 50 mg PO DAILY melatonin 10 mg Tablet 10 mg PO BEDTIME multivitamin Tablet 1 tab PO DAILY Discharge Orders: Discharge Order (Routine); Ordered 09/11/22 Ordered By: Carrie Howard Diet: Advance to usual diet Activity on Discharge: As tolerated Stand Alone Forms: Patient Portal Discharge page Care Plan Goals: full recovery from altered mental status and seizure Health Concerns: seizure Plan of Treatment: Take Keppra 500 mg twice daily as prescribed No driving for 6 months and seizure free in that time period no operating heavy machinery and no swimming unattended call to schedule follow up appointment with PCP Assessment: as above Discharge Date/Time: 09/11/22 14:58
[2022-09-10] MEDS: Aspirin Enteric Coated 81 MG TABLET.DR PO (10:10)
[2022-09-10] MEDS: amLODIPine Besylate 10 MG TABLET PO (10:10)
[2022-09-10] MEDS: levETIRAcetam 500 MG TABLET PO ×2 (10:11→21:19)
[2022-09-10] MEDS: Sertraline HCL 100 MG TABLET 200 MG PO (10:11)
[2022-09-10] MEDS: Multivitamin TABLET 1 TAB PO (10:11)
[2022-09-10] MEDS: Sertraline HCL 50 MG TABLET PO (10:11)
[2022-09-10] MEDS: lisinopriL 20 MG TABLET PO (10:11)
[2022-09-10 11:08] VITALS: BP 132/76; PULSE 68; RESP 20; TEMP 36.4; O2SAT 97
[2022-09-10 15:56] VITALS: BP 134/70; PULSE 89; RESP 18; TEMP 37.1; O2SAT 98
[2022-09-10 20:00] VITALS: BP 140/81; PULSE 74; RESP 18; TEMP 37.2; O2SAT 97
[2022-09-10] MEDS: OLANZapine 10 MG TABLET PO (21:19)
[2022-09-10] MEDS: LORazepam 1 MG TABLET PO (21:19)
[2022-09-10] MEDS: Mirtazapine 30 MG TABLET PO (21:19)
[2022-09-10] MEDS: traZODone HCL 100 MG TABLET PO (21:19)
[2022-09-10] MEDS: Melatonin 3 MG TABLET 9 MG PO (21:19)
[2022-09-10] MEDS: Atorvastatin Calcium 40 MG TABLET PO (21:19)
[2022-09-10 23:02] VITALS: BP 100/56; PULSE 53; RESP 18; TEMP 37; O2SAT 95
[2022-09-11 04:00] VITALS: BP 130/70; PULSE 107; RESP 20; TEMP 37; O2SAT 96
[2022-09-11 06:21] LABS: Prothrombin Time 23.8 SEC (10.0-13.1)
[2022-09-11 07:34] VITALS: BP 119/78; PULSE 63; RESP 20; TEMP 37.2; O2SAT 98
[2022-09-11] MEDS: Aspirin Enteric Coated 81 MG TABLET.DR PO (08:05)
[2022-09-11] MEDS: levETIRAcetam 500 MG TABLET PO (08:05)
[2022-09-11] MEDS: Sertraline HCL 100 MG TABLET 200 MG PO (08:05)
[2022-09-11] MEDS: amLODIPine Besylate 10 MG TABLET PO (08:06)
[2022-09-11] MEDS: lisinopriL 20 MG TABLET PO (08:06)
[2022-09-11] MEDS: Multivitamin TABLET 1 TAB PO (08:06)
[2022-09-11] MEDS: 0.9 % Sodium Chloride Flush 3 ML SYRINGE IVFLUSH (08:06)
[2022-09-11] MEDS: Sertraline HCL 50 MG TABLET PO (08:06)
[2022-09-11 11:07] VITALS: BP 164/80; PULSE 68; RESP 20; TEMP 36.6; O2SAT 98
--- NOTE | 2022-09-11 11:20 | PM.DS ---
DS: Providers Provider Date of Service: 09/11/22 Date of admission: 09/08/22 15:45 Primary care physician: Mojgan Duran Consults: 09/08/22 15:50 Consult to Neurology Routine Consulting Provider: [facility] Reason for consultation: AMS, ?seizure Attending physician on discharge: Coretta Hart Discharging clinician: Carrie Howard DS: Diagnosis Discharge Diagnosis (1) Seizure: Status: Acute (2) Metabolic encephalopathy: Status: Acute (3) COPD (chronic obstructive pulmonary disease): Status: Acute (4) HTN (hypertension): Status: Acute DS: Summary Hospital Course Hospital Course: Chief Complaint: Altered Mental Status Pt is a 66-year-old male with a PMH significant for?AFib on coumadin, mechanical valve, hx of AAA, alcohol use disorder sober for past 6 years, severe depression, HTN, and COPD who presents to the ED with?altered mental status. Pt unable to provide HPI, which is obtained from sister whom he lives with.? Patient was found this morning difficult to arouse, not responding to questions or commands, and with blood in his mouth. EMS arrived and patient was able to respond yes to his name; one dose of Narcan administered to no noticeable effect.? Patient was able to move all 4 extremities spontaneously, no focal deficit noted. Patient was last seen well at 21:00 last night, when he went to bed in his normal state of health. Pt initially seen and evaluated, still altered and only answers yes to his name; otherwise unresponsive to any other query. Will not make eye contact, laying on his side and staring straight ahead. Pt seen again and found incontinent of feces in the ED bed.? Patient was uncooperative and combative with nurses when bed was being changed. Still unresponsive to inquiries but now verbalizing his desire to be left alone. Of note patient has severe depression on high doses of sertraline and olanzapine. Sister states he cannot function without current olanzapine dose. Upon last admission at [facility] they reduced his dose and patient began refusing to speak.? Patient's sister also notes past abuse of his medications, notably Ativan and 2 suicide attempts by overdosing on Coumadin. Sister now has a lock box for patient's medications which she carefully monitors and administers twice a day.? Patient has been compliant to medications since, to sister's best knowledge.? Sister also notes pt has been receiving ECT every 3 weeks for the past year. In the ED labs were significant for no leukocytosis, glucose of 164, lactic acid 3.1 with repeat 0.9, ammonia WNL at 25.? UA negative for UTI.? Tox screen positive for fentanyl and marijuana. CT?of head showed no intracranial acute pathology. EKG demonstrated atrial fibrillation with QTc of 480 with no evidence of ST elevations or depressions. Pt was treated with IVF and naloxone. Pt will be admitted to the hospital further workup evaluation for AMS. Hospital course: Acute metabolic encephalopathy CT no acute finding, tox screen positive for marijuana and fentany, a bite on lip suggests seizure. Seen by neurology who recommend keppra 500 mg twice daily. He seems to be back at his baseline and is stable for discharge home with recommendation to avoid driving for the next 6 months at least, follow-up with Neurology, avoid swimming/taking baths alone. This was verbalized to the patient. Acute lactic acidosis, resolved. Lactic acid 3.1 at time of presentation, repeat 0.9. Likely elevated in the setting of seizure 1/2 blood cultures growing coagulase negative Staph, likely contaminant. No further treatment indicated COPD--No exacerbation Permanent AFiB --continue Coumadin Time Spent with Patient Time attestation: Total time managing care of this patient today ____ minutes. Discharge coordination time: Greater than 30 minutes Quality: Safe Use of Opioids Does Pt have an Active Cancer Diagnosis on the Problem List?: No Quality: Stroke Does the patient have a stroke diagnosis?: No Physical Exam Vital Signs: Vital Signs: Last Vital Signs Temp 97.9 F 09/11/22 11:07 Pulse 68 09/11/22 11:07 Resp 20 09/11/22 11:07 BP 164/80 H 09/11/22 11:07 Pulse Ox 98 09/11/22 11:07 O2 Del Method 09/11/22 11:07 BMI result Body Mass Index 30.4 Const: General: cooperative, comfortable, no acute distress, alert and awake Nutritional Appearance: overweight Resp: Effort & Inspection: normal respiratory effort and able to speak in complete sentences Cardio: Rate: regular rate GI: Inspection: No distended Palpation (GI): Soft to palpation, nontender and no guarding Extrem: Other: moving all 4 extremities spontaneously DS: Data Data Completed and Pending Labs on day of discharge: Laboratory Results - last 24 hr 09/11/22 05:55 PT 23.8 H INR 2.0 H Preliminary micro results at discharge 09/08/22 09:21 Blood Culture - Preliminary Blood - Venous No growth after 48 hours. Discharge Plan Discharge Anticipated Discharge Date/Time: 09/10/22 09:32 Patient Disposition: Home, Self-Care Discharge Diagnosis: Seizure Referrals: Mojgan Duran [Other] - 1 Week Jessica Joyner MD [Physician] - 1 Month Discharge Medications: New levetiracetam 500 mg Tablet 500 mg PO BID Qty: 60 0RF Continued atorvastatin 40 mg tablet 40 mg PO BEDTIME trazodone 50 mg tablet 100 mg PO BEDTIME lisinopril 20 mg tablet 20 mg PO DAILY sertraline 100 mg tablet 200 mg PO DAILY olanzapine 10 mg tablet 10 mg PO BEDTIME aspirin 81 mg Tablet,Delayed Release (Dr/Ec) 81 mg PO DAILY warfarin 4 mg tablet 4 mg PO MOTUWETHFRSA amlodipine 10 mg tablet 10 mg PO DAILY mirtazapine 30 mg tablet 30 mg PO BEDTIME lorazepam 1 mg tablet 1 mg PO BEDTIME warfarin 1 mg tablet 2 mg PO CALI sertraline 50 mg tablet 50 mg PO DAILY melatonin 10 mg Tablet 10 mg PO BEDTIME multivitamin Tablet 1 tab PO DAILY Discharge Orders: Discharge Order (Routine); Ordered 09/11/22 Ordered By: Carrie Howard Diet: Advance to usual diet Activity on Discharge: As tolerated Stand Alone Forms: Patient Portal Discharge page Care Plan Goals: full recovery from altered mental status and seizure Health Concerns: seizure Plan of Treatment: Take Keppra 500 mg twice daily as prescribed No driving for 6 months and seizure free in that time period no operating heavy machinery and no swimming unattended call to schedule follow up appointment with PCP Assessment: as above Discharge Date/Time: 09/11/22 14:58
--- NOTE | 2022-09-11 13:54 | MHC.CM.PN ---
Patient has been medically cleared for dc to home today, self care. Last IMM addressed on 09/09/2022.
== END 2022-09-11 14:58 | disposition home or self-care (01) | DRG 101 ==
LOC: HO.ED 13:39 → HO.EDOVER 15:57 → HO.IMC 19:32
PROVIDERS: Admitting Provider Student in an Organized Health Care Education/Training Program; Emergency Provider Emergency Medicine; PCP Family Medicine; Visit Provider Physician Assistant Medical
DX: R56.9 Unspecified convulsions (principal); E87.21 Acute metabolic acidosis; I48.21 Permanent atrial fibrillation; F10.11 Alcohol abuse, in remission; J44.9 Chronic obstructive pulmonary disease, unspecified; Z20.822 Contact with and (suspected) exposure to COVID-19; Z79.01 Long term (current) use of anticoagulants; Z79.82 Long term (current) use of aspirin; Z79.899 Other long term (current) drug therapy
CPT/HCPCS: 36415; 70450; 74176; 80048; 80076; 80307; 81001; 82077; 82140; 82947; 83605; 84146; 85025; 85610; 87040; 87147; 87205; 87635; 93005; 95816; 99285; J2060